=== PATIENT | female | born 1995 | race Caucasian/White ===

== ENCOUNTER 2016-10-08 17:54 | Emergency (ER) | payer OTHER ==
[2016-10-08 18:11] VITALS: BP 113/66
--- NOTE | 2016-10-08 20:31 | UC ---
Knee Pain HPI - HPI Summary HPI Summary: compaint of left saturnino pain pain started on tuesday fell onto her knee on tuesday pain is in the back of knee and radites into the knee cap knee feels like it wants to slide out laterally sometimes her knee gets swollen hasn't taken any medication for pain - History of Current Complaint Chief Complaint: UCLowerExtremity Stated Complaint: LEFT KNEE PAIN Time Seen by Provider: 10/08/16 20:23 Hx Obtained From: Patient Hx Last Menstrual Period: 10/06/16 Onset/Duration: Sudden Onset, Lasting Days Aggravating Factor(s): Weight Bearing, Prolonged Standing Alleviating Factor(s): Rest Associated Signs And Symptoms: Positive: Swelling Able to Bear Weight: Yes - Allergies/Home Medications Allergies/Adverse Reactions: Allergies Allergy/AdvReac Type Severity Reaction Status Date / Time Amoxicillin [From Augmentin] Allergy Severe Anaphylatic Verified 10/08/16 18:11 Shock Clavulanic Acid Allergy Severe Anaphylatic Verified 10/08/16 18:11 [From Augmentin] Shock Home Medications: Home Medications Nuva Ring 1 dose VAGINAL WEEKLY 10/08/16 [History Confirmed 10/08/16] PMH/Surg Hx/FS Hx/Imm Hx Previously Healthy: Yes Endocrine History Of: Denies: Diabetes, Thyroid Disease Cardiovascular History Of: Denies: Cardiac Disorders, Hypertension Respiratory History Of: Denies: COPD, Asthma GI/ History Of: Denies: Ulcer - Surgical History Surgical History: Yes Surgery Procedure, Year, and Place: tonsilectomy - Family History Known Family History: Positive: None Negative: Cardiac Disease, Hypertension, Diabetes - Social History Alcohol Use: None Substance Use Type: None Smoking Status (MU): Never Smoked Tobacco Have You Smoked in the Last Year: No - Immunization History Most Recent Influenza Vaccination: Not the 2014/2015 Season Hx Tetanus, Diphtheria Vaccination: Yes Vaccination Up to Date: Yes Review of Systems Constitutional: Negative Skin: Negative Eyes: Negative ENT: Negative Respiratory: Negative Cardiovascular: Negative Gastrointestinal: Negative Genitourinary: Negative Motor: Negative Neurovascular: Negative Musculoskeletal: Other: - left knee pain Neurological: Negative Psychological: Negative All Other Systems Reviewed And Are Negative: Yes Physical Exam Triage Information Reviewed: Yes Appearance: No Pain Distress, Well-Nourished Vital Signs: Initial Vital Signs Temp 99.1 F 10/08/16 18:08 Pulse 102 10/08/16 18:08 Resp 14 10/08/16 18:08 BP 113/66 10/08/16 18:08 Pulse Ox 99 10/08/16 18:08 Vital Signs Reviewed: Yes Eyes: Positive: Conjunctiva Clear ENT: Positive: Pharynx normal, TMs normal Neck: Positive: No Lymphadenopathy Respiratory: Positive: Lungs clear, Normal breath sounds, No respiratory distress Cardiovascular: Positive: RRR, No Murmur, Pulses Normal Abdomen Description: Positive: Nontender, Soft Bowel Sounds: Positive: Present Musculoskeletal: Positive: Other: - LLE-no edema, ecchymosis or crepitus negative drawer signs no pain or tenderness around patella alight pain with varus and valgus strain Neurological: Positive: Alert Psychological Exam: Normal Skin Exam: Normal Knee Pain Course/Dx - Differential Dx/Diagnosis Differential Diagnosis/HQI/PQRI: Fracture (Closed), Sprain, Strain Provider Diagnoses: left knee sprain Discharge - Discharge Plan Condition: Stable Disposition: HOME Patient Education Materials: Knee Pain (ED) Referrals: Kaitlyn Luque [Primary Care Provider] - Additional Instructions: Take ibuprofen for pain Please call physical therapist for further evaluation and treatment of your knee pain. Increase fluids and rest. Please review your discharge instructions. If your symptoms do not improve please call your primary care provider or return to urgent care.
== END 2016-10-08 20:54 | disposition home or self-care (01) ==
LOC: UCCORT 17:54
DX: S83.92XA Sprain of unspecified site of left knee, initial encounter (principal); W01.0XXA Fall on same level from slipping, tripping and stumbling without subsequent striking against object, initial encounter; Z88.1 Allergy status to other antibiotic agents
CPT/HCPCS: 99211; G0463

== ENCOUNTER 2017-09-10 17:57 | Emergency (ER) | payer OTHER ==
[2017-09-10 18:09] VITALS: BP 108/73
--- NOTE | 2017-09-10 18:31 | UC ---
Complaint Female HPI - HPI Summary HPI Summary: c/o urnary frequency and blood in urine since this morning. Denies fever, denies flank pain. - History Of Current Complaint Chief Complaint: UCGU Stated Complaint: BLOOD IN URINE Hx Obtained From: Patient Hx Last Menstrual Period: 08/17/17 ?: No Onset/Duration: Sudden Onset Timing: Intermittent Severity Initially: Moderate Severity Currently: Moderate Pain Scale Used: 0-10 Numeric - 4-6 Character: Burning Aggravating Factor(s): Urination Alleviating Factor(s): Nothing - Allergies/Home Medications Allergies/Adverse Reactions: Allergies Allergy/AdvReac Type Severity Reaction Status Date / Time Amoxicillin [From Augmentin] Allergy Severe Anaphylatic Verified 09/10/17 18:09 Shock Clavulanic Acid Allergy Severe Anaphylatic Verified 09/10/17 18:09 [From Augmentin] Shock PMH/Surg Hx/FS Hx/Imm Hx Previously Healthy: Yes - Surgical History Surgical History: Yes Surgery Procedure, Year, and Place: tonsilectomy - Family History Known Family History: Positive: None Negative: Cardiac Disease, Hypertension, Diabetes - Social History Alcohol Use: Rare Substance Use Type: Excessive Caffeine Substance Use Comment - Amount & Last Used: "a lot" Smoking Status (MU): Former Smoker Have You Smoked in the Last Year: No - Immunization History Most Recent Influenza Vaccination: Not the - Season Hx Tetanus, Diphtheria Vaccination: Yes Vaccination Up to Date: Yes Review of Systems Constitutional: Negative Genitourinary: Dysuria, Hematuria, Frequency Is Patient Immunocompromised?: No All Other Systems Reviewed And Are Negative: Yes Physical Exam Triage Information Reviewed: Yes Vital Signs: Initial Vital Signs Temp 99.8 F 09/10/17 18:03 Pulse 117 09/10/17 18:03 Resp 16 09/10/17 18:03 BP 108/73 09/10/17 18:03 Pulse Ox 99 09/10/17 18:03 Vital Signs Reviewed: Yes Neck exam: Normal Respiratory Exam: Normal Cardiovascular Exam: Normal Abdominal Exam: Normal Complaint Female Dx - Course Course Of Treatment: Start antibiotics and complete course of treatment, continue fluid intake. F/u PCP in a week - Differential Dx/Diagnosis Provider Diagnoses: UTI Discharge - Discharge Plan Condition: Stable Disposition: HOME Patient Education Materials: Urinary Tract Infection in Women (ED) Referrals: Kaitlyn Luque [Primary Care Provider] -
[2017-09-10] MEDS ORDERED: Nitrofurantoin Macrocrystals* 50 MG CAP PO ONE (18:58)
--- NOTE | 2017-09-13 16:56 | UC ---
- Progress Note Progress Note: + E Coli await sensitivity no change [facility] 09/13/17 1655 Course/Dx - Course Course Of Treatment: Start antibiotics and complete course of treatment, continue fluid intake. F/u PCP in a week
== END 2017-09-10 19:05 | disposition home or self-care (01) ==
LOC: UCEAST 17:57
DX: N39.0 Urinary tract infection, site not specified (principal); Z88.0 Allergy status to penicillin; Z88.1 Allergy status to other antibiotic agents; Z87.891 Personal history of nicotine dependence
CPT/HCPCS: 81003; 87086; 99212; A9270-GY; G0463

== ENCOUNTER 2017-10-05 12:23 | Emergency (ER) | payer OTHER ==
[2017-10-05 12:48] VITALS: BP 109/63
--- NOTE | 2017-10-05 14:08 | UC ---
Respiratory Complaint HPI - HPI Summary HPI Summary: Patient presents with an unremarkable past medical history. She reports she had had a cold, and most of those symptoms have improved, however she is still experiencing a nonproductive cough. She states she started to have pain in the right side of her ribs due to coughing, and last night she had coughed and she states that she then had sharp pain in the right side of her ribs that has not improved. She states that the pain is constant, but much worse when she coughs. She denies chest pain, dyspnea, fever, chills, abdominal pain, nausea, vomiting, diarrhea, joint pain or rashes. - History of Current Complaint Chief Complaint: UCRespiratory Stated Complaint: RIB PAIN Time Seen by Provider: 10/05/17 13:45 Hx Obtained From: Patient Hx Last Menstrual Period: 09/22/2017 Onset/Duration: Gradual Onset, Lasting Days Severity Initially: Moderate Severity Currently: Severe Pain Intensity: 5 Character: Cough: Nonproductive Aggravating Factors: Deep Breaths Alleviating Factors: Nothing Associated Signs And Symptoms: Positive: URI, Nasal Congestion - Risk Factors Pulmonary Embolism Risk Factors: Negative Cardiac Risk Factors: Negative Pseudomonas Risk Factors: Negative Tuberculosis Risk Factors: Negative - Allergies/Home Medications Allergies/Adverse Reactions: Allergies Allergy/AdvReac Type Severity Reaction Status Date / Time MS Amoxicillin Allergy Severe Anaphylatic Verified 10/05/17 12:39 [From Augmentin] Shock MS Clavulanic Acid Allergy Severe Anaphylatic Verified 10/05/17 12:39 [From Augmentin] Shock Home Medications: Home Medications Multiple Vitamins W/ Minerals [Multivitamin Adults] 1 tab PO DAILY 10/05/17 [ History Confirmed 10/05/17] PMH/Surg Hx/FS Hx/Imm Hx Previously Healthy: Yes - Surgical History Surgical History: Yes Surgery Procedure, Year, and Place: tonsilectomy - Family History Known Family History: Positive: None Negative: Cardiac Disease, Hypertension, Diabetes - Social History Occupation: Unemployed Lives: Alone Alcohol Use: Rare Substance Use Type: Excessive Caffeine Substance Use Comment - Amount & Last Used: "a lot" Smoking Status (MU): Former Smoker Have You Smoked in the Last Year: No - Immunization History Most Recent Influenza Vaccination: Not the 17-18 Season Most Recent Tetanus Shot: up to date Hx Tetanus, Diphtheria Vaccination: Yes Vaccination Up to Date: Yes Review of Systems Constitutional: Negative Skin: Negative Eyes: Negative ENT: Negative Respiratory: Cough Cardiovascular: Negative Gastrointestinal: Negative Genitourinary: Negative Motor: Negative Neurovascular: Negative Musculoskeletal: Other: - right sided rib pain Neurological: Negative Psychological: Negative Is Patient Immunocompromised?: No All Other Systems Reviewed And Are Negative: Yes Physical Exam Triage Information Reviewed: Yes Appearance: Well-Appearing Vital Signs: Initial Vital Signs Temp 99.3 F 10/05/17 12:40 Pulse 88 10/05/17 12:40 Resp 17 10/05/17 12:40 BP 109/63 10/05/17 12:40 Pulse Ox 99 10/05/17 12:40 Vital Signs Reviewed: Yes Eye Exam: Normal ENT Exam: Normal Neck exam: Normal Neck: Positive: 1 Respiratory Exam: Normal Cardiovascular Exam: Normal Abdominal Exam: Normal Musculoskeletal: Positive: Other: - reproducible right side rib pain over area of rib number 7,8,9 laterally. Neurological Exam: Normal Psychological Exam: Normal Skin Exam: Normal UC Diagnostic Evaluation - Laboratory O2 Sat by Pulse Oximetry: 99 Respiratory Course/Dx - Course Course Of Treatment: Patient presents with an unremarkable past medical history. She presents with pain in the right side of her ribs that developed with coughing ,and became worse last night. She has recovered from the URI, but continues to havd reactive coughing. Xrays of the chest were obtained and were negative for acute disease. She presents clinically most likely with pleurisy, or costalchondritis. I do not susupect Pe as the patient is not tacycadic o hypoxic, and the pain is pleuritic in nature. the chest xray was discussed with the patient. She verbalized understanding of and in agreement with the discharge plan. - Differential Dx/Diagnosis Differential Diagnosis/HQI/PQRI: Other - costalchondritis pleurisy Provider Diagnoses: costalchondritis. pleurisy Discharge - Discharge Plan Condition: Stable Disposition: HOME Prescriptions: HYDROcodone/ACETAMIN 5-325 MG* [Andrews 5-325 TAB*] 1 tab PO Q4H PRN #10 tab MDD 6 PRN Reason: rib pain Ibuprofen TAB* [Motrin TAB* 400 MG] 400 mg PO Q6H PRN #20 tab PRN Reason: rib pain Patient Education Materials: Costochondritis (ED) Referrals: Kaitlyn Luque [Primary Care Provider] -
--- NOTE | 2017-10-05 14:17 | RAD ---
Indication: Right rib pain. 2 views of the chest including dual energy PA views demonstrate no mediastinal shift. Heart is of normal size and configuration. Lung valdez are clear. No changes noted since July 24, 2013. IMPRESSION: No active cardiopulmonary disease is noted.
== END 2017-10-05 14:31 | disposition home or self-care (01) ==
LOC: UCEAST 12:23
DX: M94.0 Chondrocostal junction syndrome [Tietze] (principal); R09.1 Pleurisy; Z87.891 Personal history of nicotine dependence
CPT/HCPCS: 71046; 99212; G0463